=== PATIENT | female | born 1980 | race Caucasian/White ===

== ENCOUNTER 2016-07-28 20:45 | Emergency (ER) | payer BC ==
[2016-07-28 20:54] VITALS: BP 186/86
[2016-07-28] MEDS ORDERED: AZIT250T PO (21:42)
[2016-07-28] MEDS ORDERED: HYDR115S2 PO (21:42)
[2016-07-28] MEDS ORDERED: PROAIR HFA8.5 GM INH (21:42)
--- NOTE | 2016-07-28 21:42 | PHYS DOC ---
Past Medical History Past Medical History: No Pertinent History Past Surgical History: No Surgical History Alcohol Use: None Drug Use: None Adult General Chief Complaint Chief Complaint: COUGH HPI HPI Patient is a 35 year old female presents emergency room today with ongoing cough for approximately 2 weeks. Patient's was seen by a provider in her care and was prescribed clindamycin for bilateral ear infections. She was also placed on prednisone and Zofran. Patient denies any history of lung disease. She denies any antibiotic use, hospitalization or foreign travel 90 days previous to her illness. Patient states that she is a nonsmoker. Patient states that she was feeling some increased pain in her right ear with subsequent relief of the pain with the drainage began today. Review of Systems Review of Systems Constitutional: Denies fever or chills [] Eyes: Denies change in visual acuity, redness, or eye pain [] HENT: Denies nasal congestion or sore throat [] Respiratory: Denies cough or shortness of breath [] Cardiovascular: No additional information not addressed in HPI [] GI: Denies abdominal pain, nausea, vomiting, bloody stools or diarrhea [] : Denies dysuria or hematuria [] Musculoskeletal: Denies back pain or joint pain [] Integument: Denies rash or skin lesions [] Neurologic: Denies headache, focal weakness or sensory changes [] Endocrine: Denies polyuria or polydipsia [] Allergies Allergies Allergies Coded Allergies Type Severity Reaction Last Updated Verified Penicillins Allergy Intermediate 07/28/16 Yes Physical Exam Physical Exam Constitutional: Well developed, well nourished, no acute distress, non-toxic appearance. [] HENT: Normocephalic, atraumatic, bilateral external ears normal, oropharynx moist, no oral exudates, nose normal. Right tympanic membrane with perforation at the base. Left tympanic membrane is hyperemic and bulging. Margins the umbo are slightly distorted. There is no evidence of mastoiditis. Eyes: PERRLA, EOMI, conjunctiva normal, no discharge. [] Neck: Normal range of motion, no tenderness, supple, no stridor. There is no meningismus. There is bilateral anterior and posterior cervical lymphadenopathy. Cardiovascular:Heart rate regular rhythm, no murmur [] Lungs & Thorax: Patient demonstrates a harsh, bronchitic cough. There is no respiratory distress or respiratory fatigue. Lung sounds are clear to auscultation bilaterally. Abdomen: Bowel sounds normal, soft, no tenderness, no masses, no pulsatile masses. [] Skin: Warm, dry, no erythema, no rash. [] Back: No tenderness, no CVA tenderness. [] Extremities: No tenderness, no cyanosis, no clubbing, ROM intact, no edema. [] Neurologic: Alert and oriented X 3, normal motor function, normal sensory function, no focal deficits noted. [] Psychologic: Affect normal, judgement normal, mood normal. [] Current Patient Data Vital Signs Vital Signs Date Time Temp Pulse Resp B/P Pulse Ox O2 Delivery O2 Flow Rate FiO2 07/28/16 20:54 99.7 86 20 100 Room Air 99.7 EKG EKG [] Radiology/Procedures Radiology/Procedures [] Course & Med Decision Making Course & Med Decision Making Pertinent Labs and Imaging studies reviewed. (See chart for details) [] Dragon Disclaimer Dragon Disclaimer This electronic medical record was generated, in whole or in part, using a voice recognition dictation system. Departure Departure Impression: Primary Impression: Bronchitis Additional Impression: Otitis media, acute with perforation of eardrum Disposition: 01 HOME, SELF-CARE Condition: GOOD Referrals: UNKNOWN PCP NAME (PCP) Patient Instructions: Acute Bronchitis, [id number], Eardrum Perforation, Easy -to-Read, Otitis Media, Adult, [id number] Additional Instructions: 1. Stop taking the clindamycin. 2. Begin taking the medication that is prescribed to here today. 3. Avoid getting water into your ears, particularly right ear. 4. Contact your primary care doctor in the morning to schedule follow-up appointment. Scripts Hydrocodone/Chlorphen Polis (Tussionex Pennkinetic Susp)480 Ml [id number] Ml PO BID cough suppressant #120 ML Prov:MELQUIADES MCKEON 07/28/16 Albuterol Sulfate (Proair Hfa Inhaler)8.5 Gm [id number].[id number] Puff INH PRN Q6HRS PRN SHORTNESS OF BREATH #1 INHALER Ref 0 Prov:MELQUIADES MCKEON 07/28/16 Azithromycin (Zithromax)250 Mg Tablet1 Pkg PO UD #6 TAB Prov:MELQUIADES MCKEON 07/28/16 Problem Qualifiers MELQUIADES MCKEON Jul 28, 2016 21:43
== END 2016-07-28 21:48 | disposition home or self-care (01) ==
LOC: ER 20:45
DX: J40 Bronchitis, not specified as acute or chronic (principal); H66.92 Otitis media, unspecified, left ear; H72.91 Unspecified perforation of tympanic membrane, right ear; Z88.0 Allergy status to penicillin
CPT/HCPCS: 99283